=== PATIENT | female | born 1955 | race Caucasian/White ===

== ENCOUNTER → 2017-07-06 | Outpatient (CLI) | payer OTHER ==
[~2017-07-06] MED LIST: ALDACTONE25 MG; BUTALB-APAP-CA1 EACH PO; CARISOPRODOL; CARISOPRODOL 3350 MG PO; CATAPRES0.1 MG PO; DICLOFENAC SODI75 MG PO; DIFLUCAN150 MG PO; HYDROCODONE-AP1 EAC6 PO; HYDROCORTISONE3011 TP; KEFLEX250 MG PO; KETOROLAC TROME10 MG PO; LORTAB 5 MG/5001 TAB PO; LYRICA 50 MG50 MG PO; LYRICA 75 MG CA75 MG; NABUMETONE 750750 M1 PO; NEURONTIN 300300 M1 PO; NORCO 5-325 TA1 EACH PO; NORCO 7.5-3251 EACH PO; OMEPRAZOLE; RELAFEN500 MG PO; REQUIP1 MG PO; RIZATRIPTAN10 MG PO; ROBAXIN 750 MG750 M1 PO; TOPIRAMATE ER200 MG PO; VICODIN; WELLBUTRIN SR150 M1 PO; XANAX1 MG PO; ZANAFLEX4 MG PO; ZOFRAN4 MG PO; [UNRECOGNIZED DRUG - OTHER]
--- NOTE | 2017-07-13 07:59 | PAINCON ---
[facility] [address] [place] [address] PAIN MANAGEMENT CONSULTATION Name: TUCKERFELIZ S Room: [facility]#: [id number] Admission: 07/06/17 Attend Phys: Vikki Cui Discharge: Date of : 53 Report #: [id number] THIS REPORT FOR: //name// CC: Najma Pathak DATE OF SERVICE: 07/06/2017 The patient is a very pleasant 61-year-old female, prior seen in pain clinic on 04/13/2017 diagnosed with symptomatic lumbar radiculopathy status post decompressive laminectomy requiring complex medication management. She returns to pain clinic today. The patient is a pleasant 61-year-old female initially seen in the pain clinic on 12/22/2016. The patient is status post prior fusion L3 through S1 in May 2016. She prior had 2 other surgeries in 2014 and 2011. She has had chronic axial back and lumbar radicular pain. At time of consultation, we continued patient on hydrocodone 5/325 up to 4 a day, gabapentin 300 mg t.i.d., clonidine 0.1 at bedtime, referred to physical therapy for core strengthening and recommended smoking cessation. Last visit on 04/13/2017, random drug screen was obtained. It was positive for prescribed medications and no others. Please do note that random drug screen was negative for nicotine metabolites (cotinine). The patient had been managed at higher dose opiates before we took over her care. She had been up to 10 mg hydrocodone for quite some time. Up again, she has weaned down very nicely and in fact at last visit, we had continued opiate weaning and she is now completely off hydrocodone. She was doing reasonably well until she developed some pain in the right hip last month. She decided to sit in the hot tub, which seemed to help, but when getting out of the bath, she slipped and hit her low back with acute exacerbation of pain in the back and right hip and leg. The patient notes that currently pain is increased to 4 on a VAS. Pain is primarily in right buttock. There is no true radicular component at this time. PHYSICAL EXAMINATION: VITAL SIGNS: Shows 5 feet 9 inches, 203 pounds female, BMI is 30 kilograms per meter squared. Blood pressure 137/75, pulse 86, respirations 16. NEUROLOGIC: Alert and oriented to person, place and time, judged to be a reasonable historian. MUSCULOSKELETAL: Rises from chair using armrest. Gait is modestly antalgic. Does have tenderness over the right back and buttock, tenderness over the right [facility] [address] [place] [address] PAIN MANAGEMENT CONSULTATION Name: FELIZ CEBALLOS Room: [facility]#: [id number] Admission: 07/06/17 Attend Phys: Vikki Cui Discharge: Date of : 53 Report #: [id number] SI joint. Positive ISMAEL test on this side. Lower extremity strength, however, is generally preserved. ASSESSMENT: Symptomatic lumbar radiculopathy status post decompressive laminectomy, component of right SI mediated pain at present after a recent fall. She does have a fairly extensive fusion in the lumbar spine. RECOMMENDATIONS: To the patient's credit, she is desirous of continuing to wean oral agents. She has completely weaned off opiate analgesics. She has not had any hydrocodone for some time. She has continued to take gabapentin 300 mg 5 a day (2 in the morning, 1 at noon, and 2 at night), She continues Soma 3 times a day or t.i.d., Soma which has metabolized to meprobamate can be very difficult to wean, it is similar to benzodiazepines in its pharmacology. I talked about core strengthening exercises to limit movement in the SI joint. She may benefit from a right SI joint injection under fluoroscopy. She does have some insurance issues. She was going to ask her insurance company what her copay would be for the procedure. We will plan on moving forward next week if it is not userious amount. Otherwise, we talked about weaning Soma slowly, I have taken the liberty of writing for Soma 350 mg, continue t.i.d. for 10 days, down to b.i.d. for 20 days. We will start the patient on nabumetone 750 b.i.d. for 30 days to help with the acute exacerbation of pain following trauma. We will start to wean gabapentin. I wrote a prescription for weaning gabapentin 1 tablet every 5 days, we will have her start 1 tab in the morning, 1 at noon and 2 at night for 5 days, 1 tablet 3 times a day for 5 days, 1 tablet b.i.d. for 5 days, 1 tablet at bedtime for 5 days and then discontinue altogether. I did provide for the patient another prescription for Soma 350 mg to be released in 4 weeks for 21 tablets. Usage is 1/2 tablet b.i.d. for 14 days and then 1/2 tablet at bedtime for 14 days. This should sufficiently wean patient off all oral agents. Recommend increasing physical therapy, core stability exercises. May benefit from a right SI joint injection. I will be happy to see the patient as needed if at some point in her medication weaning, she develops pain and starts to plateau and interfere with function. We may need to continue her on a low-dose anti-inflammatory medication, perhaps a p.r.n. muscle relaxant. The patient was seen for approximately 25 minutes, greater than 50% of this time was spent reviewing therapeutic issues, discussing recent trauma and proposed interventional therapy (right SI joint injection under fluoroscopy). [place] [address] PAIN MANAGEMENT CONSULTATION Name: TUCKERFELIZ S Room: [facility]#: [id number] Admission: 07/06/17 Attend Phys: Vikki Cui Discharge: Date of : 53 Report #: [id number] Discharged in good and stable condition. <ELECTRONICALLY SIGNED> By: Tha Pathak DO 07/13/17 [id number] Justin Pathak DO /nt
== END ==
LOC: M.PC 04:52
DX: M54.16 Radiculopathy, lumbar region (principal)